=== PATIENT | female | born 1970 | race Asian ===

== ENCOUNTER 2018-07-01 20:02 | Emergency (ER) | payer OTHER ==
[~2018-07-01] VITALS: Ht 162.6 cm; Wt 95.3 kg
[2018-07-01] MEDS ORDERED: DIGO0.2549 PO (20:21)
[2018-07-01 21:11] LABS: PLATELET COUNT 215 K/uL (152-353)
[2018-07-01 21:13] LABS: SODIUM 138 mmol/L (136-145)
[2018-07-02 00:15] VITALS: BP 135/94; TEMP 98
== END 2018-07-02 00:15 | disposition home or self-care (01) ==
LOC: ED 20:02
PROVIDERS: Internal Medicine
DX: R00.2 Palpitations (principal); R00.0 Tachycardia, unspecified; I34.1 Nonrheumatic mitral (valve) prolapse
CPT/HCPCS: 36415; 80053; 80162; 82550; 82553; 84484; 85027; 93005; 96374; 96376; 99284; J3490

== ENCOUNTER 2018-09-04 11:29 | Emergency (ER) | payer OTHER ==
[~2018-09-04] VITALS: Ht 162.6 cm; Wt 102.1 kg
[~2018-09-04 11:29] MED LIST: DIGO0.2549 PO
[2018-09-04 12:20] VITALS: BP 168/72; TEMP 98.2
== END 2018-09-04 12:20 | disposition home or self-care (01) ==
LOC: ED 11:29
DX: H66.93 Otitis media, unspecified, bilateral (principal); J32.9 Chronic sinusitis, unspecified; R42 Dizziness and giddiness
CPT/HCPCS: 99281

== ENCOUNTER 2020-01-20 14:14 | Emergency (ER) | payer OTHER ==
[~2020-01-20] VITALS: Ht 162.6 cm; Wt 98.0 kg
[2020-01-20 15:18] LABS: POTASSIUM 4.2 mmol/L (3.6-5.2)
[2020-01-20 15:26] LABS: PLATELET COUNT 354 K/uL (152-353)
[2020-01-20 17:21] VITALS: BP 116/64; TEMP 99.1
== END 2020-01-20 17:30 | disposition home or self-care (01) ==
LOC: ED 14:14
PROVIDERS: Family Medicine
DX: E86.0 Dehydration (principal); U07.1 COVID-19; A08.39 Other viral enteritis; R11.2 Nausea with vomiting, unspecified
CPT/HCPCS: 36415; 80053; 81000; 85027; 96360; 96375; 99284; J2405

== ENCOUNTER 2021-06-30 13:02 | Emergency (ER) | payer OTHER ==
[~2021-06-30] VITALS: Ht 162.6 cm; Wt 98.0 kg
[2021-06-30 13:15] VITALS: BP 126/80; TEMP 97.8
[2021-06-30 13:37] LABS: PLATELET COUNT 196 K/uL (152-353)
[2021-06-30 13:54] LABS: PARTIAL THROMBOPLASTIN TIME 27.2 SECONDS (24.5-33.6)
[2021-06-30 14:20] LABS: POTASSIUM 3.5 mmol/L (3.6-5.2)
== END 2021-06-30 14:53 | disposition still patient (30) ==
LOC: ED 13:02
PROVIDERS: Hospitalist
DX: R07.89 Other chest pain (principal); Z53.29 Procedure and treatment not carried out because of patient's decision for other reasons
CPT/HCPCS: 36415; 80053; 80162; 80320; 82550; 83880; 84484; 85027; 85610; 85730; 93005; 99283